=== PATIENT | female | born 1990 | race Two or more races ===

== ENCOUNTER 2025-01-04 08:47 | Emergency (ER) | payer MEDICAID, SELFPAY ==
[2025-01-04 09:02] VITALS: BP 117/80; PULSE 68; RESP 16; TEMP 37; O2SAT 99; BMI 28.3
--- NOTE | 2025-01-04 09:20 | PD.EDRME ---
Rapid Medical Screening Exam RME Arrival date/time: 01/04/25 08:47 34-year-old female reports she has myasthenia gravis presents with complaints of generalized weakness and fatigue and episodes of falling Chief Complaint: Weakness Time Seen by Provider: 01/04/25 08:53 Vital signs: Vital Signs Temperature 98.6 F 01/04/25 09:02 Pulse Rate 68 01/04/25 09:02 Respiratory Rate 16 01/04/25 09:02 Blood Pressure 117/80 01/04/25 09:02 Pulse Oximetry (%) 99 01/04/25 09:02 Oxygen Delivery Method Room Air 01/04/25 09:02
[2025-01-04 09:38] LABS: Collection Type, Urine Clean Catch
[2025-01-04 09:42] LABS: HCG Qualitative,Urine Negative
[2025-01-04 09:43] LABS: Bilirubin,Urine Negative (Negative); Blood,Urine Negative (Negative); Color,Urine Lt-Yellow (Lt Yel-Yel); Culture Indicated,Urine Not Indicated; Glucose, Urine Negative (Negative); Ketones,Urine Negative (Negative); Leukocyte Esterase,Urine Negative (Negative); Nitrite,Urine Negative (Negative); Protein,Urine Negative (Neg - Trace); RBC,Urine < 1 /hpf (0-3); Specific Gravity,Urine 1.009 (1.001-1.035); Squamous Epithelial Cell,Urine 10 /hpf (0-5); Urobilinogen,Urine Negative mg/dL (0.0-1.0); WBC,Urine 1 /hpf (0-5)
[2025-01-04 09:59] LABS: Clarity,Urine Hazy (Clear/Hazy)
[2025-01-04 10:16] LABS: Basophils % (Auto) 0 % (0-2.5); Eosinophils # (Auto) 0.1 Thou/mm3 (0.0-0.5); Eosinophils % (Auto) 1 % (0-10); Hematocrit 39.2 % (36.0-46.0); Hemoglobin 13.5 g/dL (12.0-16.0); Immature Granulocytes % (Auto) 0 % (0-0); Immature Granulocytes Auto 0.02 Thou/mm3 (0.00-0.00); Lymphocytes # (Auto) 1.6 Thou/mm3 (1.0-4.8); Lymphocytes % (Auto) 22 % (10-50); Mean Corpuscular HGB Conc 34.4 g/dl (31.0-37.0); Mean Corpuscular Hemoglobin 27.3 pg (25.0-35.0); Mean Corpuscular Volume 79 fL (80-100); Monocytes # (Auto) 0.4 Thou/mm3 (0.0-0.8); Monocytes % (Auto) 6 % (0-12); Neutrophils % (Auto) 71 % (37-80); Nucleated Red Blood Cell % 0 /100 WBC (0); Platelet Count 211 Thou/mm3 (140-440); RDW Standard Deviation 35.2 fL (36.4-46.3); Red Blood Count 4.95 Miln/mm3 (4.00-5.20)
[2025-01-04 10:36] LABS: Alanine Aminotransferase 17 U/L (10-49); Albumin, Serum 4.7 gm/dL (3.5-5.0); Alkaline Phosphatase 66 U/L (46-116); Anion Gap 6 (7-16); Aspartate Amino Transferase 28 U/L (0-34); BUN/Creatinine Ratio 11 Ratio (12-20); Bilirubin,Total 0.7 mg/dL (0.3-1.2); Blood Urea Nitrogen 9 mg/dL (9-23); Carbon Dioxide 26.5 mMol/L (20.0-31.0); Chloride 105 mMol/L (98-107); Creatinine (Component) 0.8 mg/dL (0.6-1.3); Estimated Creatinine Clearance 100.8 mL/min (>60); Globulin 2.3 gm/dL (2.3-3.5); Glucose 114 mg/dL (74-106); Osmolality,Calculated 273 (275-295); Sodium 137 mMol/L (136-145); eGFR > 60 See Note
--- NOTE | 2025-01-04 11:16 | XR_ITS ---
Examination: PA lateral chest 2 views TECHNIQUE: Upright PA lateral chest 2 views Date and time: January 04, 2025 1132 hours INDICATIONS: Shortness of breath 6 months. FINDINGS: Normal heart size No pneumonia or pulmonary edema. Intact osseous structures IMPRESSION: No active disease
[2025-01-04 11:21] VITALS: BP 129/77; PULSE 75; RESP 21; TEMP 36.6; O2SAT 98
--- NOTE | 2025-01-04 11:28 | PD.EDWEAK ---
ED Weakness RME/HPI General Chief complaint: Weakness Stated complaint: GENERALIZED WEAKNESS Time Seen by Provider: 01/04/25 08:53 Arrival date/time: 01/04/25 08:47 34-year-old female with a past medical history of myasthenia gravis presents to the ED with a complaint of weakness since Thursday. She states her last flare was approximately 6 months ago. [facility] is [facility] The weakness she is experiencing is primarily in the lower extremities. She states she has fallen 3 times since Thursday. She denies any difficulty swallowing or difficulty breathing. She denies any recent illness with fever, chills, cough, upper respiratory complaints, nausea, vomiting, diarrhea or abdominal pain. RME / HPI RME / HPI Narrative: 01/04/25 08:47 34-year-old female reports she has myasthenia gravis presents with complaints of generalized weakness and fatigue and episodes of falling Related Data Allergies Allergy/AdvReac Type Severity Reaction Status Date / Time No Known Allergies Allergy Verified 01/04/25 08:50 Review of Systems Review of Systems Systems Reviewed: All systems reviewed, normal except as documented Past Medical History Past Medical History CARDIAC: Negative Congestive Heart Failure RESPIRATORY: Negative Chronic Obstructive Pulmonary Disease (COPD) GENITOURINARY: Negative Renal Disease MUSCULOSKELETAL: Positive Myasthenia Gravis ENDOCRINE: Negative Diabetes Mellitus Type 1 or Diabetes Mellitus Type 2 Social History SMOKING STATUS: Never smoker ED Exam Narrative Physical exam: Alert and oriented 34-year-old female, no acute distress. No respiratory distress is noted. Lungs are diminished at the bases R>L. Vital signs are stable with a blood pressure 117/80, pulse 68, respirations 16 and nonlabored, temperature of 98.6, O2 sat 99% on room air. Mildly decrease strength in all 4 extremities. CMS intact x4. DTR's decreased in the lower extremities. Course Orders Category Date Time Status IV [Insert IV] NOW Care 01/04/25 11:27 Active XR chest 2V Stat Exams 01/04/25 11:16 Completed C-Reactive Protein Stat Lab 01/04/25 10:05 Completed CBC Stat Lab 01/04/25 10:05 Completed Comprehensive Metabolic Panel Stat Lab 01/04/25 10:05 Completed HCG Qualitative,Urine Stat Lab 01/04/25 09:33 Completed Procalcitonin Stat Lab 01/04/25 10:05 Completed UA, C/S IF [Urinalysis, C/S if Indicated] Stat Lab 01/04/25 09:33 Completed Vital Signs Vital signs: Vital Signs Temperature 98.6 F 01/04/25 09:02 Pulse Rate 68 01/04/25 09:02 Respiratory Rate 16 01/04/25 09:02 Blood Pressure 117/80 01/04/25 09:02 Pulse Oximetry (%) 99 01/04/25 09:02 Oxygen Delivery Method Room Air 01/04/25 09:02 Weakness MDM Narrative MDM Narrative:: 34-year-old female with a past medical history of myasthenia gravis presents to the ED with a complaint of weakness since Thursday. She states her last flare was approximately 6 months ago. [facility] is [facility] The weakness she is experiencing is primarily in the lower extremities. She states she has fallen 3 times since Thursday. She denies any difficulty swallowing or difficulty breathing. She denies any recent illness with fever, chills, cough, upper respiratory complaints, nausea, vomiting, diarrhea or abdominal pain. She is currently taking pyridostigmine as well as Imuran as prescribed. Alert and oriented 34-year-old female, no acute distress. No respiratory distress is noted. Lungs are diminished at the bases R>L. Vital signs are stable with a blood pressure 117/80, pulse 68, respirations 16 and nonlabored, temperature of 98.6, O2 sat 99% on room air. Mildly decrease strength in all 4 extremities. CMS intact x4. DTR's decreased in the lower extremities. Vital signs blood pressure 117/8, pulse 68, respirations 16 and nonlabored, temperature 98.6, O2 sat 99% on room air. Labs reveal a normal white count of 7.0, normal H&H and normal platelets. Chemistry panel is essentially normal with the exception of a glucose of 114. LFTs and renal function are normal. Urinalysis reveals hazy yellow urine with specific gravity 1.009 with negative nitrites, negative leukocyte esterase, 10 squamous epithelials and no bacteria. Urine hCG is negative. Chest x-ray reveals no acute findings. Patient data External records reviewed:: None Clinical information provided by:: patient Social determinants that could affect healthcare access:: none Patient has the following chronic illnesses:: Myasthenia gravis How is presenting disease/condition affected by chronic disease/condition?: exacerbated by Evaluation data The following diagnostics were reviewed and interpreted by me:: lab results and radiology exam(s) Lab and/or radiology exams considered but not ordered:: N/A Interpretation Summary: Labs reveal a normal white count of 7.0, normal H&H and normal platelets. Chemistry panel is essentially normal with the exception of a glucose of 114. LFTs and renal function are normal. Urinalysis reveals hazy yellow urine with specific gravity 1.009 with negative nitrites, negative leukocyte esterase, 10 squamous epithelials and no bacteria. Urine hCG is negative. XR Chest: FINDINGS: Normal heart size No pneumonia or pulmonary edema. Intact osseous structures IMPRESSION: No active disease Medications / Prescriptions Medications or Prescriptions considered but not ordered:: N/A Consultations Consultation(s) initiated? (list below): Yes Consultation #1 (Physician, Specialty, Details): Dr. Madison, Neuro. does not feel patient needs to be admitted at this time. She agrees to see the patient in her office next week on Thursday. Time: 15:25 Diagnosis Weakness Differential Diagnosis: anemia, hypoglycemia, sepsis, dehydration and other (Myasthenia gravis exacerbation) Most likely diagnosis given after review of the tests above:: Myasthenia gravis exacerbation Admission Indicated Admission indicated?: not indicated Explain why admission is indicated or not indicated:: Patient is stable for discharge per Dr. Madison. Patient will be seen by her in her office next week on Thursday. Admission Request Was there a request for admission?: No Disposition Plan Disposition Plan: Discharge Discharge Attestation Discharge Attestation: The patient and all family members were given an opportunity to ask questions and understood the discharge instructions. Discharge instructions specifically effects, indications for sooner follow up or return to the emergency department, and the expected course of current diagnosis. Patient condition: Stable Discharge Plan Plan Patient Disposition: HOME (Self Care) Discharge Disposition comment: Stable Prescriptions/Referrals Referrals: Blu Enamorado MD [Primary Care Provider] - In 1 week Problem List Clinical Impression: Myasthenia gravis without acute exacerbation Patient/Caregiver Discharge Instructions Education Materials: Myasthenia Gravis Additional Instructions: Contact Dr. Madison's office to schedule an appointment at [facility] next week on Thursday. Follow-up with your primary care physician in 24 to 48 hours. Return to the ED for any new or worsening symptoms. Print Language: Irish Stand Alone Forms: Vilma Award Info., Patient Portal Info Letter PA/RADIO DIVISION OFFICER Supervising Physician PA/RADIO DIVISION OFFICER Supervising Physician: Dr. Bonds
--- NOTE | 2025-01-04 11:29 | PC.LAC ---
PATIENT PRESENTS TO ER WITH COMPLAINT OF BILATERAL LEG WEAKNESS X 3 DAYS WITH FALL ON THURSDAY DUE TO LEG WEAKNESS. HX OF Myasthenia Gravis WITH LAST FLARE UP 6 MONTHS AGO. A&O X3 GCS 15, WITH NKA AND AMBULATORY WITHOUT ASSISTANCE.
[2025-01-04 12:14] LABS: C-Reactive Protein < 0.5 mg/dL (0.0-0.9); Procalcitonin < 0.04 ng/ml (0.0-0.49)
[2025-01-04 14:51] VITALS: BP 100/62; PULSE 69; RESP 16; TEMP 36.8; O2SAT 98
== END 2025-01-04 16:04 | disposition home or self-care (01) ==
PROVIDERS: Nurse Practitioner Primary Care; Emergency Provider Emergency Medicine; PCP Family Medicine
DX: G70.00 Myasthenia gravis without (acute) exacerbation (principal)
CPT/HCPCS: 36415; 36600; 71046; 80053; 81001; 81025; 82803; 84145; 85025; 86140; 99283